=== PATIENT | female | born 1955 | race Two or more races ===

== ENCOUNTER 2021-07-28 13:36 | Outpatient (CLI) | payer OTHER | END 2021-07-28 13:51 | disposition home or self-care (01) | LOC: SONOGRAMA 13:36 → MAMO-SONO 13:45 → SONOGRAMA 13:51 | PROVIDERS: ATTEND Internal Medicine Endocrinology, Diabetes & Metabolism | DX: E04.8 Other specified nontoxic goiter (principal) ==